=== PATIENT | male | born 1970 | race Caucasian/White ===

== ENCOUNTER 2017-07-05 07:47 | Emergency (ER) | payer OTHER ==
[2017-07-05] MEDS ORDERED: Sodium Chloride 0.9% 10 ML Syringe FLUSH PRN (07:56)
[2017-07-05] MEDS ORDERED: fentaNYL 100 MCG/2 ML SDV IVPUSH ONE ×2 (07:56→08:52)
--- NOTE | 2017-07-05 08:02 | EDM.PDOC ---
ED HPI GENERAL MEDICAL PROBLEM - General Chief Complaint: Upper Extremity Injury/Pain Stated Complaint: SHOULDER INJURY Time Seen by Provider: 07/05/17 07:53 Source of Information: Reports: Patient History Limitations: Reports: No Limitations - History of Present Illness INITIAL COMMENTS - FREE TEXT/NARRATIVE: The patient presents with right shoulder pain. The patient dislocated his right shoulder by putting on his shirt this morning. He has dislocated his shoulder many times and he has had surgery before. He reduced it on his own. It took about an hours and he still has severe pain, and numbness and tingling down his arm. He denies any other injuries. Onset: Sudden Duration: Hour(s): (1) Location: Reports: Upper Extremity, Right (shoulder) Quality: Reports: Sharp Severity: Severe Improves with: Reports: Immobilization Worsens with: Reports: Movement Context: Reports: Activity (He dislocated his right shoulder by putting his shirt on) Associated Symptoms: Reports: No Other Symptoms Right Shoulder Pain Score (Numeric/FACES): 9 - Related Data Allergies Allergy/AdvReac Type Severity Reaction Status Date / Time No Known Allergies Allergy Verified 07/05/17 07:54 Home Meds: Home Meds Ibuprofen 800 mg PO Q6HR PRN #40 tablet 07/05/17 [Rx] Review of Systems - Review of Systems Review Of Systems: See Below Constitutional: Reports: No Symptoms Eyes: Reports: No Symptoms Ears: Reports: No Symptoms Nose: Reports: No Symptoms Mouth/Throat: Reports: No Symptoms Respiratory: Reports: No Symptoms Cardiovascular: Reports: No Symptoms GI/Abdominal: Reports: No Symptoms Genitourinary: Reports: No Symptoms Musculoskeletal: Reports: Shoulder Pain (right) ED EXAM, GENERAL - Physical Exam Exam: See Below Exam Limited By: No Limitations General Appearance: Alert, No Apparent Distress Ears: Normal External Exam Nose: Normal Inspection Head: Atraumatic, Normocephalic Neck: Normal Inspection Respiratory/Chest: No Respiratory Distress, Lungs Clear, Normal Breath Sounds Cardiovascular: Regular Rate, Rhythm, No Edema, No Murmur GI/Abdominal: Soft, Non-Tender, No Organomegaly, No Mass Back Exam: Normal Inspection Extremities: Other (Pain upon palpation to the right shoulder. Anterior scar noted. No deformity noted. Pain upon palpation to the tricep. Good pulses but he does have some numbness down his arm.) Course - Vital Signs Last Recorded V/S: Last Vital Signs Temp 97.6 F 07/05/17 07:54 Pulse 85 07/05/17 07:54 Resp 20 07/05/17 07:54 BP 145/101 H 07/05/17 07:54 Pulse Ox 94 L 07/05/17 07:54 - Orders/Labs/Meds Orders: Active Orders 24 hr Category Date Time Status Peripheral IV Care [RC] . DIRECTED Care 07/05/17 07:56 Active Shoulder Comp Rt [CR] Stat Exams 07/05/17 07:56 Taken Sodium Chloride 0.9% [Saline Flush] Med 07/05/17 07:56 Active 10 ml FLUSH ASDIRECTED PRN Peripheral IV Insertion Adult [OM.PC] Routine Oth 07/05/17 07:56 Ordered Medication Orders Sodium Chloride (Saline Flush) 10 ml FLUSH ASDIRECTED PRN PRN Reason: Keep Vein Open Last Admin: 07/05/17 08:01 Dose: 10 ml Meds: Medications Generic Name Dose Route Start Last Admin Trade Name Freq PRN Reason Stop Dose Admin Sodium Chloride 10 ml 07/05/17 07:56 07/05/17 08:01 Saline Flush FLUSH 10 ml ASDIRECTED PRN Administration Keep Vein Open Discontinued Medications Generic Name Dose Route Start Last Admin Trade Name Freq PRN Reason Stop Dose Admin Fentanyl 100 mcg 07/05/17 07:56 07/05/17 08:00 Sublimaze IVPUSH 07/05/17 07:57 100 mcg ONETIME ONE Administration - Re-Assessments/Exams Free Text/Narrative Re-Assessment/Exam: 07/05/17 08:01 I ordered an x-ray of his shoulder and I ordered an IV saline lock and fentanyl. 07/05/17 08:39 His x-ray looks good. I see no dislocation or fracture. He still has more pain so I ordered some fentanyl 50mcg IV and toradol 30mg IV. I will get him a sling and have him follow up with Dr Paredes. Departure - Departure Time of Disposition: 08:40 Disposition: Home, Self-Care 01 Condition: Good Clinical Impression: Dislocation of right shoulder joint Qualifiers: Encounter type: initial encounter Qualified Code(s): S43.004A - Unspecified dislocation of right shoulder joint, initial encounter - Discharge Information Prescriptions: Ibuprofen 800 mg PO Q6HR PRN #40 tablet PRN Reason: Pain Referrals: PCP,None [Primary Care Provider] - Cameron Paredes MD [Physician] - 1 Week Forms: ED Department Discharge Additional Instructions: Take the ibuprofen 1 tab every 6 hours as needed for pain. Ice your shoulder for 15 minutes 3 times per day for 2 days. Wear the sling for a few days. Remember to take the sling off 3 to 4 times per day and try to move your shoulder to avoid getting "frozen shoulder." Follow up with Dr Paredes within 1 week. Please return if you are worse. - My Orders Last 24 Hours: My Active Orders 07/05/17 07:56 Peripheral IV Care [RC] . DIRECTED Shoulder Comp Rt [CR] Stat Sodium Chloride 0.9% [Saline Flush] 10 ml FLUSH ASDIRECTED PRN Peripheral IV Insertion Adult [OM.PC] Routine - Assessment/Plan Last 24 Hours: My Active Orders 07/05/17 07:56 Peripheral IV Care [RC] . DIRECTED Shoulder Comp Rt [CR] Stat Sodium Chloride 0.9% [Saline Flush] 10 ml FLUSH ASDIRECTED PRN Peripheral IV Insertion Adult [OM.PC] Routine
[2017-07-05] MEDS ORDERED: Ketorolac 30 MG/ML SDV IVPUSH ONE (08:53)
--- NOTE | 2017-07-07 08:01 | CR ---
Right shoulder: Three views of the right shoulder were obtained. Acromioclavicular joint shows minimal inferior spurring. Glenohumeral joint shows minimal degenerative change. No acute fracture or other abnormality is seen. Impression: 1. Minimal degenerative change. Nothing acute is seen. Diagnostic code #2 I agree with preliminary report from [facility], finalized at 07/05/17, 10:36 AM Central Time
== END 2017-07-05 09:05 | disposition home or self-care (01) ==
LOC: JD.ED 07:47
DX: S43.004A Unspecified dislocation of right shoulder joint, initial encounter (principal); X58.XXXA Exposure to other specified factors, initial encounter
CPT/HCPCS: 73030; 96374; 96375; 96376; 99284; J1885; J3010; J7050

== ENCOUNTER 2019-11-16 23:39 | Emergency (ER) | payer SELFPAY ==
[2019-11-17] MEDS ORDERED: Ondansetron 4 MG/2 ML SDV IVPUSH ONE (00:19)
[2019-11-17] MEDS ORDERED: Sodium Chloride 0.9% 10 ML Syringe FLUSH PRN (00:19)
[2019-11-17] MEDS ORDERED: HYDROmorphone 0.5 MG/0.5 ML Syringe IVPUSH ONE ×2 (00:19→01:14)
[2019-11-17] MEDS ORDERED: Famotidine 20 MG/2 ML SDV IVPUSH ONE (00:19)
[2019-11-17] MEDS ORDERED: Sodium Chloride 0.9% 1,000 ML IV SCH (00:30)
--- NOTE | 2019-11-17 01:36 | EDM.PDOC ---
ED HPI GENERAL MEDICAL PROBLEM - General Chief Complaint: Abdominal Pain Stated Complaint: ABDOMINAL PAIN Time Seen by Provider: 11/17/19 00:12 Source of Information: Reports: Patient, RN Notes Reviewed - History of Present Illness INITIAL COMMENTS - FREE TEXT/NARRATIVE: 48 yr male with onset of abd pain, vomiting, diarrhea about 8 hrs ago. Has vomited several times, still very nauseated, generalized abd cramping. 1 episode of abnormal watery diarrhea. No hx of known GI problems other than lactate intolerance. No fever, chills, cough or difficulty breathing. Was feeling fine before this hit suddenly awakening him from his sleep. Abdomen Pain Score (Numeric/FACES): 10 - Related Data Allergies Allergy/AdvReac Type Severity Reaction Status Date / Time No Known Allergies Allergy Verified 11/17/19 00:03 Home Meds: Home Meds oxyCODONE HCl/Acetaminophen [Percocet 5-325 mg Tablet] 1 - 2 each PO Q4H PRN #30 tablet 11/19/18 [Rx] polyethylene glycoL 3350 [MiraLAX] 17 gm PO DAILY #1 cont 11/19/18 [Rx] predniSONE [Deltasone] 20 mg PO ASDIRECTED #18 tablet 11/19/18 [Rx] Acetaminophen/HYDROcodone [[place] 325-5 MG] 1 tab PO Q6H PRN #7 tablet 11/17/19 [Rx] Past Medical History HEENT History: Reports: Impaired Vision Cardiovascular History: Reports: Hypertension Musculoskeletal History: Reports: Other (See Below) Other Musculoskeletal History: repeated shoulder dislocations - Past Surgical History Musculoskeletal Surgical History: Reports: Shoulder Surgery Social & Family History - Tobacco Use Smoking Status *Q: Current Every Day Smoker Years of Tobacco use: 30 Packs/Tins Daily: 1 - Caffeine Use Caffeine Use: Reports: Energy Drinks Other Caffeine Use: 5 hr energy shots 1-2 daily - Recreational Drug Use Recreational Drug Use: Yes Recreational Drug Type: Reports: Marijuana/Hashish Recreational Drug Use Frequency: Rarely - Living Situation & Occupation Living situation: Reports: Occupation: Employed ED ROS GENERAL - Review of Systems Review Of Systems: See Below Constitutional: Denies: Fever, Chills, Diaphoresis HEENT: Reports: No Symptoms Respiratory: Denies: Shortness of Breath Cardiovascular: Denies: Chest Pain GI/Abdominal: Reports: Abdominal Pain, Nausea, Vomiting. Denies: Diarrhea, Hematochezia, Melena Musculoskeletal: Denies: Back Pain Skin: Reports: No Symptoms Neurological: Reports: No Symptoms ED EXAM, GI/ABD - Physical Exam Exam: See Below General Appearance: Alert, Moderate Distress Head: Atraumatic Neck: Supple Respiratory/Chest: No Respiratory Distress, Lungs Clear, Normal Breath Sounds Cardiovascular: Regular Rate, Rhythm GI/Abdominal Exam: Soft, Tender (mild diffuse tenderness upper, mid and lower abd). No: Guarding, Rebound Back Exam: No: CVA Tenderness (L), CVA Tenderness (R) Neurological: Alert, Oriented, No Motor/Sensory Deficits Skin Exam: Warm, Dry, Normal Color Course - Vital Signs Last Recorded V/S: Last Vital Signs Temp 98.6 F 11/17/19 00:00 Pulse 99 11/17/19 00:00 Resp 18 11/17/19 00:00 BP 119/93 H 11/17/19 00:00 Pulse Ox 98 11/17/19 00:00 - Orders/Labs/Meds Orders: Active Orders 24 hr Category Date Time Status Peripheral IV Care [RC] . DIRECTED Care 11/17/19 00:20 Active Sodium Chloride 0.9% [Normal Saline] 1,000 ml Med 11/17/19 00:30 Active IV ONETIME Sodium Chloride 0.9% [Saline Flush] Med 11/17/19 00:19 Active 10 ml FLUSH ASDIRECTED PRN Peripheral IV Insertion Adult [OM.PC] Stat Oth 11/17/19 00:19 Ordered Medication Orders Sodium Chloride (Normal Saline) 1,000 mls @ 999 mls/hr IV ONETIME [facility] Last Admin: 11/17/19 00:36 Dose: 999 mls/hr Documented by: KOFI Sodium Chloride (Saline Flush) 10 ml FLUSH ASDIRECTED PRN PRN Reason: Keep Vein Open Last Admin: 11/17/19 00:36 Dose: 10 ml Documented by: KOFI Labs: Laboratory Tests 11/17/19 11/17/19 11/17/19 Range/Units 00:25 00:25 00:25 WBC 7.90 (4.23-9.07) K/mm3 RBC 4.99 (4.63-6.08) M/mm3 Hgb 15.7 (13.7-17.5) gm/dl Hct 46.7 (40.1-51.0) % MCV 93.6 H (79.0-92.2) fl MCH 31.5 (25.7-32.2) pg MCHC 33.6 (32.2-35.5) g/dl RDW Std Deviation 45.9 H (35.1-43.9) fL Plt Count 293 (163-337) K/mm3 MPV 10.9 (9.4-12.3) fl Neut % (Auto) 75.7 H (34.0-67.9) % Lymph % (Auto) 12.0 L (21.8-53.1) % [place] % (Auto) 11.0 (5.3-12.2) % Eos % (Auto) 0.9 (0.8-7.0) Baso % (Auto) 0.3 (0.1-1.2) % Neut # (Auto) 5.98 H (1.78-5.38) K/mm3 Lymph # (Auto) 0.95 L (1.32-3.57) K/mm3 [place] # (Auto) 0.87 H (0.30-0.82) K/mm3 Eos # (Auto) 0.07 (0.04-0.54) K/mm3 Baso # (Auto) 0.02 (0.01-0.08) K/mm3 Sodium 142 (136-145) mEq/L Potassium 3.5 (3.5-5.1) mEq/L Chloride 103 (98-107) mEq/L Carbon Dioxide 28 (21-32) mEq/L Anion Gap 14.5 (5-15) BUN 13 (7-18) mg/dL Creatinine 1.2 (0.7-1.3) mg/dL Est Cr Clr Drug Dosing 77.73 mL/min Estimated GFR (MDRD) > 60 (>60) mL/min BUN/Creatinine Ratio 10.8 L (14-18) Glucose 115 H (74-106) mg/dL Calcium 9.6 (8.5-10.1) mg/dL Total Bilirubin 0.5 (0.2-1.0) mg/dL AST 21 (15-37) U/L ALT 36 (16-63) U/L Alkaline Phosphatase 69 (46-116) U/L C-Reactive Protein 0.7 (<1.0) mg/dL Total Protein 7.2 (6.4-8.2) g/dl Albumin 3.8 (3.4-5.0) g/dl Globulin 3.4 gm/dL Albumin/Globulin Ratio 1.1 (1-2) Lipase 115 (73-393) U/L Meds: Medications Generic Name Dose Route Start Last Admin Trade Name Missaelq PRN Reason Stop Dose Admin Sodium Chloride 1,000 mls @ 999 mls/hr 11/17/19 00:30 11/17/19 00:36 Normal Saline IV 999 mls/hr ONETIME KIP Administration Sodium Chloride 10 ml 11/17/19 00:19 11/17/19 00:36 Saline Flush FLUSH 10 ml ASDIRECTED PRN Administration Keep Vein Open Discontinued Medications Generic Name Dose Route Start Last Admin Trade Name Missaelq PRN Reason Stop Dose Admin Famotidine 20 mg 11/17/19 00:19 11/17/19 00:31 Pepcid IVPUSH 11/17/19 00:20 20 mg ONETIME ONE Administration Hydromorphone HCl 0.5 mg 11/17/19 00:19 11/17/19 00:29 Dilaudid IVPUSH 11/17/19 00:20 0.5 mg ONETIME ONE Administration Hydromorphone HCl 0.5 mg 11/17/19 01:14 11/17/19 01:19 Dilaudid IVPUSH 11/17/19 01:15 0.5 mg ONETIME ONE Administration Ondansetron HCl 4 mg 11/17/19 00:19 11/17/19 00:31 Zofran IVPUSH 11/17/19 00:20 4 mg ONETIME ONE Administration - Re-Assessments/Exams Free Text/Narrative Re-Assessment/Exam: 11/17/19 02:05 WBC, lipase, other labs nl, feeling better after IV fluid and meds, discharge instr. as documented. Departure - Departure Time of Disposition: 01:47 Disposition: Home, Self-Care 01 Condition: Fair Clinical Impression: Abdominal pain, Diarrhea, Vomiting - Discharge Information Prescriptions: Acetaminophen/HYDROcodone [[place] 325-5 MG] 1 tab PO Q6H PRN #7 tablet PRN Reason: Abdominal Pain Instructions: Nausea and Vomiting, Adult, [id number], Abdominal Pain, Adult, [id number], Diarrhea, Adult, [id number] Referrals: Veronika Sheriff, [facility] [Primary Care Provider] - Forms: ED Department Discharge Additional Instructions: Clear liquids only until this afternoon. Than careful bland diet as tolerated. Zofran q 6 to 8 hr if needed for further nausea or vomiting. Tylenol for mild discomfort or hydrocodone if needed for severe pain. Follow up clinic later this week or early next week for recheck. Consider getting a referral for endoscopy if having further stomach or other abdominal symptoms. Return to ED a s needed if symptoms worsening in any way. Sepsis Event Note (ED) - Evaluation Sepsis Screening Result: No Definite Risk - Focused Exam Vital Signs: Vital Signs Temp Pulse Resp BP Pulse Ox 11/17/19 00:00 98.6 F 99 18 119/93 H 98 - My Orders Last 24 Hours: My Active Orders 11/17/19 00:19 Sodium Chloride 0.9% [Saline Flush] 10 ml FLUSH ASDIRECTED PRN Peripheral IV Insertion Adult [OM.PC] Stat 11/17/19 00:20 Peripheral IV Care [RC] . DIRECTED 11/17/19 00:30 Sodium Chloride 0.9% [Normal Saline] 1,000 ml IV ONETIME - Assessment/Plan Last 24 Hours: My Active Orders 11/17/19 00:19 Sodium Chloride 0.9% [Saline Flush] 10 ml FLUSH ASDIRECTED PRN Peripheral IV Insertion Adult [OM.PC] Stat 11/17/19 00:20 Peripheral IV Care [RC] . DIRECTED 11/17/19 00:30 Sodium Chloride 0.9% [Normal Saline] 1,000 ml IV ONETIME
== END 2019-11-17 02:01 | disposition home or self-care (01) ==
LOC: JD.ED 23:39
DX: R10.84 Generalized abdominal pain (principal); R19.7 Diarrhea, unspecified; R11.2 Nausea with vomiting, unspecified; I10 Essential (primary) hypertension; F17.210 Nicotine dependence, cigarettes, uncomplicated
CPT/HCPCS: 36415; 80053; 83690; 85025; 86140; 96361; 96374; 96375; 96376; 99284; J1170; J2405; J3490; J7030; 99283